=== PATIENT | female | born 1970 ===

== ENCOUNTER → 2021-08-02 | Outpatient (REF) | payer BC ==
[2021-08-02 18:58] LABS: MALB URINE SIEMENS < 5.0 MG/L; MAU/CREAT RATIO 22.7 MCG/MG (0.0-30.0)
== END ==
LOC: M LAB REF 16:58
PROVIDERS: ATTEND Internal Medicine Endocrinology, Diabetes & Metabolism
DX: E11.65 Type 2 diabetes mellitus with hyperglycemia (principal)